=== PATIENT | female | born 1990 | race American Indian/Alaskan Native ===

== ENCOUNTER 2019-08-07 11:07 | Emergency (ER) | payer SELFPAY ==
[2019-08-07 11:35] VITALS: BP 117/75
--- NOTE | 2019-08-07 11:35 | Event Note ---
ED Screening Note Date of service: 08/07/19 Time: 11:33 ED Screening Note: This is a 28 y.o. F. that presents to the ER with L eye pain, redness, and blurry vision since 2300 last night. Denies contact use. Current smoker This initial assessment/diagnostic orders/clinical plan/treatment(s) is/are subject to change based on patients health status, clinical progression and re- assessment by fellow clinical providers in the ED. Further treatment and workup at subsequent clinical providers discretion. Patient/guardian urged not to elope from the ED as their condition may be serious if not clinically assessed and managed. Initial orders include: Wood's lamp exam
== END 2019-08-07 13:23 ==
LOC: ED 11:07
DX: H53.8 Other visual disturbances (principal); Z79.899 Other long term (current) drug therapy

== ENCOUNTER 2021-01-25 02:10 | Emergency (ER) | payer SELFPAY ==
[2021-01-25 02:21] VITALS: BP 123/68
[2021-01-25] MEDS ORDERED: oxyCODONE /ACETAMINOPHEN 5-325MG TAB PO ONE (03:41)
== END 2021-01-25 04:35 | disposition home or self-care (01) ==
LOC: ED 02:10
DX: N76.0 Acute vaginitis (principal)
CPT/HCPCS: 99282